=== PATIENT | female | born 1950 | race Hispanic/Latino ===

== ENCOUNTER 2024-09-14 22:11 | Inpatient (IN) | payer MEDICARE ==
[~2024-09-14] VITALS: Ht 165.1 cm; Wt 70.3 kg
[2024-09-14 22:57] VITALS: TEMP 98.7
[2024-09-14 23:00] LABS: BASOPHILS # (AUTO) 0.1 (0.0-0.1); BASOPHILS % 0.8 % (0.0-1.0); EOSINOPHILS # (AUTO) 0.1 (0.0-0.4); EOSINOPHILS % 0.8 % (0.0-6.0); HEMATOCRIT 28.2 % (34.2-44.1); HEMOGLOBIN 9.2 g/dL (12.0-16.0); LYMPHOCYTES # (AUTO) 0.5 (1.0-3.2); LYMPHOCYTES % 6.6 % (18.0-39.1); MEAN CORPUSCULAR HEMOGLOBIN 28.8 pg (28-32); MEAN CORPUSCULAR HGB CONC 32.6 g/dL (31-35); MEAN CORPUSCULAR VOLUME 88.1 fL (81-99); MONOCYTES # (AUTO) 0.9 (0.2-0.8); MONOCYTES % 12.2 % (4.4-11.3); NEUTROPHILS # (AUTO) 5.1 (2.1-6.9); NEUTROPHILS % 67.9 % (38.7-80.0); RED CELL DISTRIBUTION WIDTH 21.5 % (11.7-14.4); WHITE BLOOD COUNT 7.55 x10e3/uL (4.8-10.8)
[2024-09-14 23:13] LABS: PLATELET COUNT 94 x10e3/uL (140-360)
[2024-09-14 23:35] LABS: ALBUMIN 3.7 g/dL (3.5-5.0); ALBUMIN/GLOBULIN RATIO 1.3 (0.8-2.0); ANION GAP 14.6 mmol/L (8-16); BILIRUBIN,TOTAL 0.4 mg/dL (0.2-1.2); CALCIUM 8.6 mg/dL (8.4-10.2); CREATININE, SERUM 1.06 mg/dL (0.57-1.11); POTASSIUM 3.6 mmol/L (3.5-5.1); TOTAL PROTEIN 6.5 g/dL (6.5-8.1)
[2024-09-14] MEDS ORDERED: IOPAMIDOL 370 MG/ML 100 ML INFUS..BTL INJ ONE (23:53)
[2024-09-15] VITALS (10 sets, daily range): BP systolic 115–136; BP diastolic 45–68; PULSE 79–96; RESP 18–20; TEMP 97.3–98.5; O2SAT 99–100
[2024-09-15] MEDS: SODIUM CHLORIDE 0.9% 1000ML 1,000 ML IV ONE (00:05)
[2024-09-15] MEDS: ONDANSETRON HCL INJ 2MG/ML 2ML 2 MG/ML VIAL IV STA (00:05)
[2024-09-15] MEDS ORDERED: ONDANSETRON HCL INJ 2MG/ML 2ML 2 MG/ML VIAL IV PRN (01:15)
[2024-09-15] MEDS ORDERED: Morphine 4mg INJECTION 4 MG/ML INJ IV PRN (01:15)
[2024-09-15 02:09] LABS: BILIRUBIN,URINE NEGATIVE (NEGATIVE); CLARITY,URINE CLEAR (CLEAR); COLOR,URINE YELLOW (YELLOW); GLUCOSE, URINE NEGATIVE (NEGATIVE); KETONES,URINE TRACE (NEGATIVE); LEUKOCYTE ESTERASE ,URINE NEGATIVE (NEGATIVE); NITRITE,URINE NEGATIVE (NEGATIVE); PH,URINE 6 (5 - 7); PROTEIN,URINE DIPSTICK NEGATIVE (NEGATIVE); URINE UROBILINOGEN 0.2 mg/dL (0.2 - 1)
[2024-09-15 02:18] LABS: BACTERIA,URINE MANY /HPF; EPITHELIAL CELLS,URINE MODERATE /LPF; WBC,URINE (MAN) 21-50 /HPF (0-5)
[2024-09-15] MEDS ORDERED: GLIPIZIDE XL10 MG (03:41)
[2024-09-15] MEDS ORDERED: PANTOPRAZOLE SO40 MG PO (03:41)
[2024-09-15] MEDS ORDERED: ACYCLOVIR200 MG PO (03:41)
[2024-09-15] MEDS ORDERED: CIPRO500 MG PO (03:41)
[2024-09-15] MEDS ORDERED: LISINOPRIL2.5 MG PO (03:41)
[2024-09-15] MEDS: SODIUM CHLORIDE 0.9% 250ML IRRIG IR SCH ×2 (03:52→10:04)
[2024-09-15] MEDS: SODIUM CHLORIDE 0.9% 1000ML 1,000 ML IV SCH (04:05)
[2024-09-15 04:15] LABS: EOSINOPHILS % (MANUAL) 1 % (0-7); LYMPHOCYTES % (MANUAL) 15 % (19-48); METAMYELOCYTES % (MANUAL) 2 % (0-0); MONOCYTES % (MANUAL) 9 % (3.4-9.0); MYELOCYTES % (MANUAL) 1 % (0-0); NEUTROPHILS % (MANUAL) 72 % (40-74)
[2024-09-15 04:16] LABS: ELLIPTOCYTE, RBC SLIGHT; OVALOCYTES FEW; TEAR DROP CELLS FEW
[2024-09-15 04:17] LABS: ANISOCYTOSIS SLIG; PLATELET ESTIMATE SLIGHTLY DECREASED; PLATELET MORPHOLOGY COMMENT NORMAL; POLYCHROMASIA FEW; RBC MORPHOLOGY COMMENT ABNORMAL
[2024-09-15 04:18] LABS: HYPOCHROMASIA SLIGHT; POIKILOCYTOSIS SLIG
[2024-09-15] MEDS: BISACODYL 10 MG SUPP PR ONE (22:38)
[2024-09-16 03:14] VITALS: BP 107/56; PULSE 91; RESP 18; TEMP 98; O2SAT 100
[2024-09-16 06:11] LABS: BASOPHILS % 0.5 % (0.0-1.0); EOSINOPHILS # (AUTO) 0.1 (0.0-0.4); EOSINOPHILS % 1.6 % (0.0-6.0); LYMPHOCYTES # (AUTO) 0.5 (1.0-3.2); LYMPHOCYTES % 7.8 % (18.0-39.1); MEAN CORPUSCULAR HEMOGLOBIN 28.6 pg (28-32); MEAN CORPUSCULAR VOLUME 89.3 fL (81-99); MONOCYTES # (AUTO) 0.8 (0.2-0.8); MONOCYTES % 13.6 % (4.4-11.3); NEUTROPHILS # (AUTO) 3.7 (2.1-6.9); PLATELET COUNT 119 x10e3/uL (140-360); RED CELL DISTRIBUTION WIDTH 22.3 % (11.7-14.4); WHITE BLOOD COUNT 5.79 x10e3/uL (4.8-10.8)
[2024-09-16 07:09] LABS: INR 0.9; PROTHROMBIN TIME 12.7 seconds (11.9-14.5)
[2024-09-16 07:10] LABS: PARTIAL THROMBOPLASTIN TIME 28.1 seconds (23.8-35.5)
[2024-09-16 07:36] LABS: ALBUMIN/GLOBULIN RATIO 1.4 (0.8-2.0); BILIRUBIN,TOTAL 0.3 mg/dL (0.2-1.2); CALCIUM 7.4 mg/dL (8.4-10.2); CREATININE, SERUM 0.71 mg/dL (0.57-1.11); TOTAL PROTEIN 5.1 g/dL (6.5-8.1)
[2024-09-16] MEDS: PANTOPRAZOLE SOD 40 MG TABEC PO SCH (07:49)
[2024-09-16] MEDS: LISINOPRIL 2.5 MG TAB PO SCH (07:49)
[2024-09-16 08:17] VITALS: BP 124/58; PULSE 84; RESP 18; TEMP 97.5; O2SAT 100
[2024-09-16 08:57] VITALS: BP 124/58; PULSE 84; RESP 18; TEMP 97.5; O2SAT 100
[2024-09-16] MEDS: CITRATE OF MAGNESIA 300ML BOTTLE PO ONE (11:38)
[2024-09-16 12:25] VITALS: BP 120/51; PULSE 86; RESP 18; TEMP 98; O2SAT 100
[2024-09-16 12:41] LABS: BAND NEUTROPHILS % (MANUAL) 28 %; LYMPHOCYTES % (MANUAL) 11 % (19-48); METAMYELOCYTES % (MANUAL) 7 % (0-0); MONOCYTES % (MANUAL) 7 % (3.4-9.0); MYELOCYTES % (MANUAL) 2 % (0-0); NEUTROPHILS % (MANUAL) 44 % (40-74); REACTIVE LYMPHOCYTES 1
[2024-09-16 12:46] LABS: PLATELET ESTIMATE ADEQUATE; PLATELET MORPHOLOGY COMMENT NORMAL
[2024-09-16 12:47] LABS: NUCLEATED RED BLOOD CELLS 1; RBC MORPHOLOGY COMMENT ABNORMAL
[2024-09-16 12:49] LABS: ANISOCYTOSIS SLIG; HYPOCHROMASIA SLIG; POIKILOCYTOSIS SLIGHT; POLYCHROMASIA FEW
== END 2024-09-16 15:00 | disposition home or self-care (01) | DRG 389 ==
LOC: ER 22:15 → ERHOLD 09-15 01:15 → MED/SURG2 09-15 02:31 → OBSVTOIN 09-16 00:15
PROVIDERS: ADMIT Internal Medicine; ATTEND Internal Medicine
PROC: 0D9670Z Drainage of Stomach with Drainage Device, Via Natural or Artificial Opening (ICD-10-PCS; principal; 2024-09-16)
DX: K56.609 Unspecified intestinal obstruction, unspecified as to partial versus complete obstruction (principal); C41.9 Malignant neoplasm of bone and articular cartilage, unspecified; C85.90 Non-Hodgkin lymphoma, unspecified, unspecified site; K52.9 Noninfective gastroenteritis and colitis, unspecified; I10 Essential (primary) hypertension; E11.9 Type 2 diabetes mellitus without complications; Z79.84 Long term (current) use of oral hypoglycemic drugs; K21.9 Gastro-esophageal reflux disease without esophagitis; Z79.60 Long term (current) use of unspecified immunomodulators and immunosuppressants; Z79.899 Other long term (current) drug therapy
CPT/HCPCS: 36415; 74018; 74177; 80053; 81001; 82948; 83690; 83880; 84484; 85025; 85610; 85730; 87086; 87186; 93005; 99284; G0378; J0696; J2405; J2470; J7030; Q9967

== ENCOUNTER 2024-11-10 18:26 | Inpatient (IN) | payer MEDICARE ==
[~2024-11-10] VITALS: Ht 165.1 cm; Wt 73.9 kg
[~2024-11-10 18:26] MED LIST: ACTOS15 MG PO; ACYCLOVIR200 MG PO; CIPRO500 MG PO; GLIPIZIDE XL10 MG; GLIPIZIDE5 MG PO; LISINOPRIL2.5 MG PO; OMEPRAZOLE40 MG PO; PANTOPRAZOLE SO40 MG PO; ULTRAM 50MG50 MG PO
[2024-11-10] MEDS: ONDANSETRON HCL INJ 2MG/ML 2ML 2 MG/ML VIAL IV STA ×3 (18:43→23:28)
[2024-11-10] MEDS: Morphine 4mg INJECTION 4 MG/ML INJ IV STA ×2 (18:43→21:20)
[2024-11-10] MEDS: SODIUM CHLORIDE 0.9% 1000ML 1,000 ML IV STA ×2 (18:43→19:37)
[2024-11-10 19:28] VITALS: TEMP 97.7
[2024-11-10] MEDS: BENZOCAINE 20% SPR 60 ML CAN MT ONE (19:36)
[2024-11-10] MEDS: ACETAMINOPHEN 325 MG TAB PO STA (19:36)
[2024-11-10 19:39] LABS: BASOPHILS # (AUTO) 0.1 (0.0-0.1); BASOPHILS % 0.1 % (0.0-1.0); HEMATOCRIT 25.5 % (34.2-44.1); HEMOGLOBIN 8.5 g/dL (12.0-16.0); LYMPHOCYTES # (AUTO) 0.3 (1.0-3.2); LYMPHOCYTES % 0.8 % (18.0-39.1); MEAN CORPUSCULAR HEMOGLOBIN 33.1 pg (28-32); MEAN CORPUSCULAR HGB CONC 33.3 g/dL (31-35); MEAN CORPUSCULAR VOLUME 99.2 fL (81-99); MONOCYTES # (AUTO) 0.6 (0.2-0.8); MONOCYTES % 1.8 % (4.4-11.3); NEUTROPHILS # (AUTO) 31.5 (2.1-6.9); NEUTROPHILS % 92.8 % (38.7-80.0); PLATELET COUNT 241 x10e3/uL (140-360); RED BLOOD COUNT 2.57 x10e6/uL (3.6-5.1); RED CELL DISTRIBUTION WIDTH 17.5 % (11.7-14.4)
[2024-11-10 19:57] LABS: ALBUMIN 3.3 g/dL (3.5-5.0); ALBUMIN/GLOBULIN RATIO 1.4 (0.8-2.0); ANION GAP 14.5 mmol/L (8-16); BILIRUBIN,TOTAL 0.4 mg/dL (0.2-1.2); CALCIUM 9.1 mg/dL (8.4-10.2); CREATININE, SERUM 0.92 mg/dL (0.57-1.11); POTASSIUM 3.5 mmol/L (3.5-5.1); TOTAL PROTEIN 5.7 g/dL (6.5-8.1)
[2024-11-10 20:16] LABS: TROPONIN I 0.028 ng/mL (0-0.300)
[2024-11-10] MEDS ORDERED: IOPAMIDOL 370 MG/ML 100 ML INFUS..BTL INJ ONE (20:52)
[2024-11-10 21:21] LABS: CLARITY,URINE CLEAR (CLEAR); COLOR,URINE YELLOW (YELLOW); GLUCOSE, URINE NEGATIVE (NEGATIVE); LEUKOCYTE ESTERASE ,URINE SMALL (NEGATIVE); NITRITE,URINE NEGATIVE (NEGATIVE); PH,URINE 5.5 (5 - 7); PROTEIN,URINE DIPSTICK NEGATIVE (NEGATIVE)
[2024-11-10 21:22] LABS: BILIRUBIN,URINE NEGATIVE (NEGATIVE); KETONES,URINE NEGATIVE (NEGATIVE); URINE UROBILINOGEN 0.2 mg/dL (0.2 - 1)
[2024-11-10 21:23] LABS: BACTERIA,URINE FEW /HPF; EPITHELIAL CELLS,URINE MODERATE /LPF; RBC,URINE 0-5 /HPF (0-5); WBC,URINE (MAN) 0-5 /HPF (0-5)
[2024-11-10 21:42] VITALS: PULSE 82; RESP 10
[2024-11-10 21:46] LABS: PLATELET ESTIMATE ADEQUATE; PLATELET MORPHOLOGY COMMENT NORMAL; RBC MORPHOLOGY COMMENT NORMAL
[2024-11-10 21:51] LABS: MONOCYTES % (MANUAL) 1 % (3.4-9.0); NEUTROPHILS % (MANUAL) 92 % (40-74)
[2024-11-10 21:52] LABS: BAND NEUTROPHILS % (MANUAL) 7 %
[2024-11-10 21:53] LABS: ANISOCYTOSIS SLIGHT
[2024-11-10] MEDS ORDERED: ONDANSETRON HCL INJ 2MG/ML 2ML 2 MG/ML VIAL ONE (23:17)
[2024-11-11] VITALS (11 sets, daily range): BP systolic 93–135; BP diastolic 34–80; PULSE 65–95; RESP 17–20; TEMP 97.6–98.2; O2SAT 95–100
[2024-11-11] MEDS ORDERED: OLANZAPINE2.5 MG PO (01:52)
[2024-11-11] MEDS ORDERED: DICLOFENAC POTA50 MG PO (01:52)
[2024-11-11] MEDS ORDERED: PROCHLORPERAZIN10 MG PO (01:52)
[2024-11-11] MEDS ORDERED: ZOLPIDEM TARTRAT5 MG PO (01:52)
[2024-11-11] MEDS: SODIUM CHLORIDE 0.9% 1000ML 1,000 ML IV SCH (01:57)
[2024-11-11] MEDS: Morphine 4mg INJECTION 4 MG/ML INJ IV PRN (01:57)
[2024-11-11] MEDS ORDERED: HYDRALAZINE HCL 20 MG/ML VIAL IV PRN (03:00)
[2024-11-11] MEDS ORDERED: ACETAMINOPHEN 650 MG SUPP PR PRN (03:00)
[2024-11-11 10:31] LABS: BASOPHILS # (AUTO) 0.1 (0.0-0.1); BASOPHILS % 0.1 % (0.0-1.0); HEMOGLOBIN 8.2 g/dL (12.0-16.0); LYMPHOCYTES # (AUTO) 0.2 (1.0-3.2); LYMPHOCYTES % 0.7 % (18.0-39.1); MEAN CORPUSCULAR HEMOGLOBIN 32.3 pg (28-32); MEAN CORPUSCULAR HGB CONC 31.5 g/dL (31-35); MEAN CORPUSCULAR VOLUME 102.4 fL (81-99); MONOCYTES # (AUTO) 0.3 (0.2-0.8); NEUTROPHILS # (AUTO) 30.8 (2.1-6.9); NEUTROPHILS % 92.2 % (38.7-80.0); PLATELET COUNT 177 x10e3/uL (140-360); RED BLOOD COUNT 2.54 x10e6/uL (3.6-5.1); RED CELL DISTRIBUTION WIDTH 17.7 % (11.7-14.4); WHITE BLOOD COUNT 33.43 x10e3/uL (4.8-10.8)
[2024-11-11 10:52] LABS: ALBUMIN 3.1 g/dL (3.5-5.0); ALBUMIN/GLOBULIN RATIO 1.3 (0.8-2.0); ANION GAP 13.1 mmol/L (8-16); BILIRUBIN,TOTAL 0.4 mg/dL (0.2-1.2); CALCIUM 8.3 mg/dL (8.4-10.2); CREATININE, SERUM 0.79 mg/dL (0.57-1.11); POTASSIUM 4.1 mmol/L (3.5-5.1); TOTAL PROTEIN 5.4 g/dL (6.5-8.1)
[2024-11-11 11:03] LABS: MAGNESIUM 1.8 MG/DL (1.3-2.1); PHOSPHORUS 2.7 MG/DL (2.3-4.7)
[2024-11-11 11:09] LABS: TROPONIN I 0.031 ng/mL (0-0.300)
[2024-11-11 11:24] LABS: FREE T4 (FREE THYROXINE) 1.26 ng/dL (0.8-1.8); THYROID STIMULATING HORMONE 1.533 uIU/mL (0.350-4.940)
[2024-11-11 12:12] LABS: BAND NEUTROPHILS % (MANUAL) 2 %; LYMPHOCYTES % (MANUAL) 4 % (19-48); NEUTROPHILS % (MANUAL) 94 % (40-74); PLATELET ESTIMATE ADEQUATE; PLATELET MORPHOLOGY COMMENT NORMAL
[2024-11-11] MEDS: ONDANSETRON HCL INJ 2MG/ML 2ML 2 MG/ML VIAL IV PRN (13:10)
[2024-11-12] VITALS (9 sets, daily range): BP systolic 109–136; BP diastolic 43–65; PULSE 74–97; RESP 18; TEMP 97.5–98.2; O2SAT 90–100
[2024-11-12 05:40] LABS: BASOPHILS # (AUTO) 0.1 (0.0-0.1); BASOPHILS % 0.4 % (0.0-1.0); EOSINOPHILS % 0.1 % (0.0-6.0); HEMATOCRIT 24.3 % (34.2-44.1); LYMPHOCYTES # (AUTO) 0.3 (1.0-3.2); LYMPHOCYTES % 1.3 % (18.0-39.1); MEAN CORPUSCULAR HEMOGLOBIN 32.8 pg (28-32); MEAN CORPUSCULAR HGB CONC 32.1 g/dL (31-35); MEAN CORPUSCULAR VOLUME 102.1 fL (81-99); MONOCYTES # (AUTO) 0.2 (0.2-0.8); MONOCYTES % 0.8 % (4.4-11.3); NEUTROPHILS # (AUTO) 21.2 (2.1-6.9); NEUTROPHILS % 89.4 % (38.7-80.0); PLATELET COUNT 146 x10e3/uL (140-360); RED BLOOD COUNT 2.38 x10e6/uL (3.6-5.1); RED CELL DISTRIBUTION WIDTH 17.2 % (11.7-14.4); WHITE BLOOD COUNT 23.67 x10e3/uL (4.8-10.8)
[2024-11-12 05:50] LABS: HEMOGLOBIN 7.8 g/dL (12.0-16.0)
[2024-11-12 06:04] LABS: ALBUMIN/GLOBULIN RATIO 1.4 (0.8-2.0); ANION GAP 12.3 mmol/L (8-16); BILIRUBIN,TOTAL 0.5 mg/dL (0.2-1.2); CALCIUM 7.8 mg/dL (8.4-10.2); CREATININE, SERUM 0.75 mg/dL (0.57-1.11); POTASSIUM 3.3 mmol/L (3.5-5.1); TOTAL PROTEIN 5.1 g/dL (6.5-8.1)
[2024-11-12 08:31] LABS: TROPONIN I 0.048 ng/mL (0-0.300)
[2024-11-12] MEDS: POTASSIUM CHLORIDE 20MEQ/100ML 100 ML IV ONE (09:14)
[2024-11-12 09:23] LABS: LYMPHOCYTES % (MANUAL) 1 % (19-48); MONOCYTES % (MANUAL) 1 % (3.4-9.0); NEUTROPHILS % (MANUAL) 98 % (40-74); PLATELET ESTIMATE ADEQUATE
[2024-11-12 09:24] LABS: HYPOCHROMASIA SLIGHT; PLATELET MORPHOLOGY COMMENT NORMAL
[2024-11-13] VITALS (9 sets, daily range): BP systolic 105–141; BP diastolic 58–84; PULSE 72–86; RESP 16–18; TEMP 97–98.2; O2SAT 98–100
[2024-11-13 06:09] LABS: BASOPHILS # (AUTO) 0.1 (0.0-0.1); BASOPHILS % 0.9 % (0.0-1.0); EOSINOPHILS % 0.4 % (0.0-6.0); HEMATOCRIT 22.7 % (34.2-44.1); LYMPHOCYTES # (AUTO) 0.2 (1.0-3.2); LYMPHOCYTES % 2.2 % (18.0-39.1); MEAN CORPUSCULAR HEMOGLOBIN 32.6 pg (28-32); MEAN CORPUSCULAR HGB CONC 32.2 g/dL (31-35); MEAN CORPUSCULAR VOLUME 101.3 fL (81-99); MONOCYTES # (AUTO) 0.1 (0.2-0.8); MONOCYTES % 0.9 % (4.4-11.3); NEUTROPHILS # (AUTO) 7.1 (2.1-6.9); NEUTROPHILS % 78.4 % (38.7-80.0); RED BLOOD COUNT 2.24 x10e6/uL (3.6-5.1); RED CELL DISTRIBUTION WIDTH 16.4 % (11.7-14.4); RETICULOCYTE % 1.2 % (0.8-2.2)
[2024-11-13 06:10] LABS: HEMOGLOBIN 7.3 g/dL (12.0-16.0)
[2024-11-13 06:29] LABS: PLATELET COUNT 90 x10e3/uL (140-360); WHITE BLOOD COUNT 9.08 x10e3/uL (4.8-10.8)
[2024-11-13 06:32] LABS: ALBUMIN 2.9 g/dL (3.5-5.0); ALBUMIN/GLOBULIN RATIO 1.2 (0.8-2.0); ANION GAP 11.4 mmol/L (8-16); BILIRUBIN,TOTAL 0.6 mg/dL (0.2-1.2); CALCIUM 7.8 mg/dL (8.4-10.2); CREATININE, SERUM 0.7 mg/dL (0.57-1.11); POTASSIUM 3.4 mmol/L (3.5-5.1); TOTAL PROTEIN 5.3 g/dL (6.5-8.1)
[2024-11-13 06:48] LABS: MAGNESIUM 1.7 MG/DL (1.3-2.1); PHOSPHORUS 1.7 MG/DL (2.3-4.7)
[2024-11-13 09:30] LABS: BAND NEUTROPHILS % (MANUAL) 1 %; EOSINOPHILS % (MANUAL) 1 % (0-7); LYMPHOCYTES % (MANUAL) 1 % (19-48); NEUTROPHILS % (MANUAL) 97 % (40-74)
[2024-11-13 09:32] LABS: OVALOCYTES FEW; PLATELET ESTIMATE MODERATELY DECREASED; PLATELET MORPHOLOGY COMMENT NORMAL
[2024-11-13] MEDS: ENOXAPARIN SOD INJ 40 MG/0.4 ML SYR SC SCH (10:11)
[2024-11-13] MEDS: MAGNESIUM SULF 1GRAM/DEXTROSE 100 ML IV ONE (10:11)
[2024-11-13] MEDS: POTASSIUM PHOSPHATE 15 MM in SODIUM CHLORIDE 0.9% 250ML 250 ML IV ONE (13:31)
[2024-11-14] VITALS (7 sets, daily range): BP systolic 105–126; BP diastolic 60–84; PULSE 69–79; RESP 16–18; TEMP 97.4–98.3; O2SAT 100
[2024-11-14 06:03] LABS: BASOPHILS # (AUTO) 0.1 (0.0-0.1); BASOPHILS % 2.7 % (0.0-1.0); EOSINOPHILS % 0.9 % (0.0-6.0); HEMATOCRIT 30.7 % (34.2-44.1); HEMOGLOBIN 9.5 g/dL (12.0-16.0); LYMPHOCYTES # (AUTO) 0.3 (1.0-3.2); LYMPHOCYTES % 9.1 % (18.0-39.1); MEAN CORPUSCULAR HEMOGLOBIN 31.3 pg (28-32); MEAN CORPUSCULAR HGB CONC 30.9 g/dL (31-35); MONOCYTES % 1.2 % (4.4-11.3); NEUTROPHILS # (AUTO) 2.5 (2.1-6.9); RED BLOOD COUNT 3.04 x10e6/uL (3.6-5.1); RED CELL DISTRIBUTION WIDTH 18.9 % (11.7-14.4); WHITE BLOOD COUNT 3.28 x10e3/uL (4.8-10.8)
[2024-11-14 06:11] LABS: PLATELET COUNT 37 x10e3/uL (140-360)
[2024-11-14 06:44] LABS: ANION GAP 14.5 mmol/L (8-16); CREATININE, SERUM 0.69 mg/dL (0.57-1.11); MAGNESIUM 1.9 MG/DL (1.3-2.1); PHOSPHORUS 2.1 MG/DL (2.3-4.7); POTASSIUM 3.5 mmol/L (3.5-5.1)
[2024-11-14 07:47] LABS: ANISOCYTOSIS MODERATE; EOSINOPHILS % (MANUAL) 2 % (0-7); HYPOCHROMASIA SLIGHT; LYMPHOCYTES % (MANUAL) 10 % (19-48); NEUTROPHILS % (MANUAL) 88 % (40-74); PLATELET ESTIMATE MARKEDLY DECREASED
[2024-11-14 07:48] LABS: PLATELET MORPHOLOGY COMMENT NORMAL; TOXIC GRANULATION SLIGHT
[2024-11-14] MEDS: MEGACE 400 MG / 10 ML CUP PO SCH (09:10)
[2024-11-14] MEDS: SODIUM CHLORIDE 0.9% 250ML 250 ML IV ONE (09:15)
[2024-11-14] MEDS ORDERED: AMPICILLIN TRI500 MG PO (11:26)
[2024-11-14] MEDS ORDERED: MEGESTROL400 MG/10 PO (11:26)
[2024-11-14] MEDS ORDERED: VITAMIN C500 MG PO (11:34)
[2024-11-14] MEDS: POTASSIUM PHOSPHATE 15 MM in SODIUM CHLORIDE 0.9% 250ML 250 ML IV ONE (11:35)
[2024-11-14] MEDS ORDERED: REMERON30 MG PO (15:21)
[2024-11-14] MEDS ORDERED: MIRTAZAPINE 15 MG TAB PO SCH (21:00)
== END 2024-11-14 17:41 | disposition home or self-care (01) | DRG 872 ==
LOC: ER 18:30 → ERHOLD 23:23 → MED/SURG2 11-11 01:43
PROVIDERS: ADMIT Internal Medicine; ATTEND Internal Medicine
PROC: 0D9670Z Drainage of Stomach with Drainage Device, Via Natural or Artificial Opening (ICD-10-PCS; principal; 2024-11-10)
PROC: 3E03329 Introduction of Other Anti-infective into Peripheral Vein, Percutaneous Approach (ICD-10-PCS; 2024-11-10)
PROC: 30233N1 Transfusion of Nonautologous Red Blood Cells into Peripheral Vein, Percutaneous Approach (ICD-10-PCS; 2024-11-13)
DX: A41.9 Sepsis, unspecified organism (principal); C83.30 Diffuse large B-cell lymphoma, unspecified site; N39.0 Urinary tract infection, site not specified; K56.690 Other partial intestinal obstruction; R65.20 Severe sepsis without septic shock; B95.2 Enterococcus as the cause of diseases classified elsewhere; K21.9 Gastro-esophageal reflux disease without esophagitis; I10 Essential (primary) hypertension; E11.69 Type 2 diabetes mellitus with other specified complication; E78.5 Hyperlipidemia, unspecified; Z79.84 Long term (current) use of oral hypoglycemic drugs; T45.1X5A Adverse effect of antineoplastic and immunosuppressive drugs, initial encounter; R11.2 Nausea with vomiting, unspecified; D53.9 Nutritional anemia, unspecified; D63.8 Anemia in other chronic diseases classified elsewhere; E87.6 Hypokalemia; E83.42 Hypomagnesemia; E83.39 Other disorders of phosphorus metabolism; D72.829 Elevated white blood cell count, unspecified; I95.9 Hypotension, unspecified; T45.8X5A Adverse effect of other primarily systemic and hematological agents, initial encounter; R09.02 Hypoxemia; D69.59 Other secondary thrombocytopenia; Y92.230 Patient room in hospital as the place of occurrence of the external cause; F32.A Depression, unspecified; Z71.3 Dietary counseling and surveillance; Z68.27 Body mass index [BMI] 27.0-27.9, adult; Z71.81 Spiritual or religious counseling; Z95.828 Presence of other vascular implants and grafts; Z79.899 Other long term (current) drug therapy; Z79.69 Long term (current) use of other immunomodulators and immunosuppressants; Z90.49 Acquired absence of other specified parts of digestive tract
CPT/HCPCS: 36415; 74019; 74022; 74177; 80048; 80053; 81001; 82550; 82607; 82728; 82746; 82948; 83540; 83605; 83690; 83735; 84100; 84439; 84443; 84466; 84484; 85025; 85045; 86850; 86900; 86920; 87040; 87086; 87186; 93005; 94799; 99284; J1650; J2270; J2405; J2470; J2543; J3475; J3480; J7030; J7050; P9016; Q9967

== ENCOUNTER 2024-11-27 10:41 | Emergency (ER) | payer MEDICARE ==
[~2024-11-27] VITALS: Ht 165.1 cm; Wt 73.9 kg
[~2024-11-27 10:41] MED LIST changes: +AMPICILLIN TRI500 MG PO; +DICLOFENAC POTA50 MG PO; +MEGESTROL400 MG/10 PO; +OLANZAPINE2.5 MG PO; +PROCHLORPERAZIN10 MG PO; +REMERON30 MG PO; +VITAMIN C500 MG PO; +ZOLPIDEM TARTRAT5 MG PO
[2024-11-27 10:47] VITALS: TEMP 98.1
[2024-11-27 11:30] VITALS: PULSE 91; RESP 18; O2SAT 100
[2024-11-27] MEDS ORDERED: MECLIZINE HCL12.5 MG PO (12:41)
== END 2024-11-27 12:50 | disposition home or self-care (01) ==
LOC: ER 10:48
DX: R42 Dizziness and giddiness (principal); I10 Essential (primary) hypertension; E11.9 Type 2 diabetes mellitus without complications; E78.5 Hyperlipidemia, unspecified; K21.9 Gastro-esophageal reflux disease without esophagitis; Z85.72 Personal history of non-Hodgkin lymphomas
CPT/HCPCS: 70450; 99283

== ENCOUNTER 2024-12-01 15:49 | Inpatient (IN) | payer MEDICARE ==
[~2024-12-01] VITALS: Ht 165.1 cm; Wt 73.9 kg
[~2024-12-01 15:49] MED LIST changes: +MECLIZINE HCL12.5 MG PO
[2024-12-01 15:50] VITALS: PULSE 84; RESP 18; TEMP 98.3
[2024-12-01] MEDS ORDERED: SODIUM CHLORIDE 0.9% 1000ML 1,000 ML ONE (16:03)
[2024-12-01] MEDS ORDERED: ONDANSETRON HCL INJ 2MG/ML 2ML 2 MG/ML VIAL ONE (16:03)
[2024-12-01 16:31] LABS: BASOPHILS # (AUTO) 0.1 (0.0-0.1); BASOPHILS % 0.6 % (0.0-1.0); HEMOGLOBIN 10.3 g/dL (12.0-16.0); LYMPHOCYTES # (AUTO) 2.5 (1.0-3.2); LYMPHOCYTES % 28.3 % (18.0-39.1); MEAN CORPUSCULAR HEMOGLOBIN 31.5 pg (28-32); MEAN CORPUSCULAR HGB CONC 33.2 g/dL (31-35); MEAN CORPUSCULAR VOLUME 94.8 fL (81-99); MONOCYTES % 11.3 % (4.4-11.3); NEUTROPHILS # (AUTO) 5.1 (2.1-6.9); NEUTROPHILS % 59.1 % (38.7-80.0); PLATELET COUNT 241 x10e3/uL (140-360); RED BLOOD COUNT 3.27 x10e6/uL (3.6-5.1); RED CELL DISTRIBUTION WIDTH 17.3 % (11.7-14.4); WHITE BLOOD COUNT 8.66 x10e3/uL (4.8-10.8)
[2024-12-01] MEDS: ONDANSETRON HCL INJ 2MG/ML 2ML 2 MG/ML VIAL IV STA (16:34)
[2024-12-01] MEDS: SODIUM CHLORIDE 0.9% 1000ML 1,000 ML IV STA (16:34)
[2024-12-01 16:47] LABS: INR 0.84; PROTHROMBIN TIME 12.3 seconds (11.9-14.5)
[2024-12-01 16:48] LABS: PARTIAL THROMBOPLASTIN TIME 24.1 seconds (23.8-35.5)
[2024-12-01 16:58] LABS: ALBUMIN 3.9 g/dL (3.5-5.0); ALBUMIN/GLOBULIN RATIO 1.1 (0.8-2.0); ANION GAP 18.5 mmol/L (8-16); BILIRUBIN,TOTAL 0.6 mg/dL (0.2-1.2); CREATININE, SERUM 0.94 mg/dL (0.57-1.11); MAGNESIUM 1.9 MG/DL (1.3-2.1); POTASSIUM 3.5 mmol/L (3.5-5.1); TOTAL PROTEIN 7.4 g/dL (6.5-8.1)
[2024-12-01 17:03] LABS: CALCIUM 9.6 mg/dL (8.4-10.2)
[2024-12-01] MEDS: PROMETHAZINE 12.5MG/ NACL 0.9% 12.5 MG/50 ML BAG IV ONE (17:03)
[2024-12-01 17:04] LABS: TROPONIN I 0.047 ng/mL (0-0.300)
[2024-12-01 17:20] LABS: BILIRUBIN,URINE NEGATIVE (NEGATIVE); CLARITY,URINE CLOUDY (CLEAR); COLOR,URINE YELLOW (YELLOW); GLUCOSE, URINE NEGATIVE (NEGATIVE); KETONES,URINE TRACE (NEGATIVE); LEUKOCYTE ESTERASE ,URINE NEGATIVE (NEGATIVE); NITRITE,URINE NEGATIVE (NEGATIVE); PH,URINE 6 (5 - 7); PROTEIN,URINE DIPSTICK 2+ (NEGATIVE); URINE UROBILINOGEN 0.2 mg/dL (0.2 - 1)
[2024-12-01] MEDS ORDERED: IOPAMIDOL 370 MG/ML 100 ML INFUS..BTL INJ ONE (17:41)
[2024-12-01 17:51] LABS: BACTERIA,URINE MANY /HPF; EPITHELIAL CELLS,URINE MANY /LPF; RBC,URINE 0-5 /HPF (0-5); WBC,URINE (MAN) 21-50 /HPF (0-5)
[2024-12-01 17:52] LABS: MUCUS,URINE FEW
[2024-12-01] MEDS ORDERED: PROMETHAZINE 12.5MG/ NACL 0.9% 12.5 MG/50 ML BAG IV PRN (18:45)
[2024-12-01] MEDS: SODIUM CHLORIDE 0.9% 1000ML 1,000 ML IV SCH (19:18)
[2024-12-01] MEDS: Vancomycin IV 1 GM in SODIUM CHLORIDE 0.9% 250ML 250 ML IV SCH (19:19)
[2024-12-01 22:41] VITALS: BP 109/59; PULSE 91; RESP 16; TEMP 97.3; O2SAT 99
[2024-12-02] VITALS (7 sets, daily range): BP systolic 98–120; BP diastolic 54–59; PULSE 74–91; RESP 16–18; TEMP 97.3–97.9; O2SAT 97–100
[2024-12-02] MEDS ORDERED: MECLIZINE HCL 12.5 MG TAB PO PRN (18:15)
[2024-12-02] MEDS ORDERED: TRAMADOL HCL 50 MG TAB PO PRN (18:15)
[2024-12-02] MEDS: ONDANSETRON HCL INJ 2MG/ML 2ML 2 MG/ML VIAL IV PRN (22:02)
[2024-12-03 05:56] LABS: BASOPHILS # (AUTO) 0.1 (0.0-0.1); EOSINOPHILS % 0.2 % (0.0-6.0); HEMOGLOBIN 8.6 g/dL (12.0-16.0); LYMPHOCYTES # (AUTO) 1.1 (1.0-3.2); LYMPHOCYTES % 20.3 % (18.0-39.1); MEAN CORPUSCULAR HEMOGLOBIN 31.5 pg (28-32); MEAN CORPUSCULAR HGB CONC 31.9 g/dL (31-35); MEAN CORPUSCULAR VOLUME 98.9 fL (81-99); MONOCYTES # (AUTO) 0.7 (0.2-0.8); MONOCYTES % 13.4 % (4.4-11.3); NEUTROPHILS # (AUTO) 3.3 (2.1-6.9); NEUTROPHILS % 63.5 % (38.7-80.0); PLATELET COUNT 166 x10e3/uL (140-360); RED BLOOD COUNT 2.73 x10e6/uL (3.6-5.1); RED CELL DISTRIBUTION WIDTH 17.8 % (11.7-14.4); WHITE BLOOD COUNT 5.16 x10e3/uL (4.8-10.8)
[2024-12-03 06:30] LABS: ANION GAP 11.9 mmol/L (8-16); CALCIUM 8.1 mg/dL (8.4-10.2); CREATININE, SERUM 0.79 mg/dL (0.57-1.11); MAGNESIUM 1.8 MG/DL (1.3-2.1); POTASSIUM 3.9 mmol/L (3.5-5.1)
[2024-12-03 06:52] LABS: TROPONIN I 0.052 ng/mL (0-0.300)
[2024-12-03 08:00] VITALS: BP_SYST 112; PULSE 75; RESP 18; TEMP 98; O2SAT 100
[2024-12-03] MEDS: PANTOPRAZOLE SOD 40 MG TABEC PO SCH (08:32)
[2024-12-03 08:48] VITALS: BP 106/56; PULSE 80; RESP 18; TEMP 97.9; O2SAT 97
[2024-12-03 12:00] VITALS: BP 100/72; PULSE 74; RESP 19; TEMP 97.8; O2SAT 99
[2024-12-03 17:39] VITALS: BP 106/60; PULSE 77; RESP 19; TEMP 98.2; O2SAT 100
[2024-12-03 20:00] VITALS: BP 109/50; PULSE 79; RESP 18; TEMP 97.9; O2SAT 99
[2024-12-04] VITALS: BP 118/53; PULSE 74; RESP 18; TEMP 98.3; O2SAT 98
[2024-12-04 04:00] VITALS: BP 101/59; PULSE 80; RESP 18; TEMP 98.1; O2SAT 96
[2024-12-04 05:29] LABS: BASOPHILS # (AUTO) 0.1 (0.0-0.1); BASOPHILS % 1.2 % (0.0-1.0); EOSINOPHILS % 0.2 % (0.0-6.0); HEMATOCRIT 29.6 % (34.2-44.1); HEMOGLOBIN 9.4 g/dL (12.0-16.0); LYMPHOCYTES # (AUTO) 0.7 (1.0-3.2); LYMPHOCYTES % 17.4 % (18.0-39.1); MEAN CORPUSCULAR HEMOGLOBIN 31.4 pg (28-32); MEAN CORPUSCULAR HGB CONC 31.8 g/dL (31-35); MONOCYTES # (AUTO) 0.6 (0.2-0.8); MONOCYTES % 15.3 % (4.4-11.3); NEUTROPHILS # (AUTO) 2.7 (2.1-6.9); NEUTROPHILS % 64.2 % (38.7-80.0); PLATELET COUNT 159 x10e3/uL (140-360); RED BLOOD COUNT 2.99 x10e6/uL (3.6-5.1); RED CELL DISTRIBUTION WIDTH 17.5 % (11.7-14.4); WHITE BLOOD COUNT 4.13 x10e3/uL (4.8-10.8)
[2024-12-04 05:58] LABS: ANION GAP 12.8 mmol/L (8-16); CALCIUM 8.4 mg/dL (8.4-10.2); CREATININE, SERUM 0.74 mg/dL (0.57-1.11); POTASSIUM 3.8 mmol/L (3.5-5.1)
[2024-12-04 06:31] LABS: TROPONIN I 0.059 ng/mL (0-0.300)
[2024-12-04 08:30] VITALS: BP 101/59; PULSE 80; RESP 18; TEMP 98.1; O2SAT 96
[2024-12-04 09:06] VITALS: BP 117/57; PULSE 71; RESP 19; TEMP 98; O2SAT 100
[2024-12-04 11:41] VITALS: BP 107/48; PULSE 72; RESP 18; TEMP 98; O2SAT 99
[2024-12-04 15:56] VITALS: BP 106/72; PULSE 67; RESP 19; TEMP 98.1; O2SAT 100
[2024-12-04] MEDS ORDERED: ONDANSETRON ODT8 MG PO (18:52)
== END 2024-12-04 21:21 | disposition home or self-care (01) | DRG 392 ==
LOC: ER 15:57 → ERHOLD 18:40 → MED/SURG 20:06
PROVIDERS: ADMIT Internal Medicine; ATTEND Internal Medicine
DX: R11.2 Nausea with vomiting, unspecified (principal); C83.30 Diffuse large B-cell lymphoma, unspecified site; E87.20 Acidosis, unspecified; E11.65 Type 2 diabetes mellitus with hyperglycemia; D64.9 Anemia, unspecified; E78.5 Hyperlipidemia, unspecified; T45.1X5A Adverse effect of antineoplastic and immunosuppressive drugs, initial encounter; I10 Essential (primary) hypertension; K21.9 Gastro-esophageal reflux disease without esophagitis; R53.81 Other malaise; F32.A Depression, unspecified; Z79.84 Long term (current) use of oral hypoglycemic drugs; Z90.49 Acquired absence of other specified parts of digestive tract; Z90.710 Acquired absence of both cervix and uterus; Z88.5 Allergy status to narcotic agent; Z80.3 Family history of malignant neoplasm of breast; Z80.0 Family history of malignant neoplasm of digestive organs
CPT/HCPCS: 36415; 71045; 74177; 80048; 80053; 81001; 82550; 83690; 83735; 84484; 85025; 85610; 85730; 87086; 93005; 99252; 99284; J0696; J2405; J2470; J2550; J7030; J7050; Q9967